=== PATIENT | male | born 1940 | race Caucasian/White ===

== ENCOUNTER 2022-11-24 08:32 | Outpatient (CLI) | payer MEDICARE, OTHER, SELFPAY ==
[2022-11-24] VITALS (7 sets, daily range): BP systolic 116–150; BP diastolic 58–70; PULSE 51–60; RESP 12–20; TEMP 36.3; O2SAT 98–100
--- NOTE | 2022-11-24 08:34 | DI.RAD.S_ITS ---
PROCEDURE: PAIN L INTERLAMINAR/CAUDAL INJ INDICATIONS: SPONDYLOSIS COMPARISON: [facility], CR, XR LUMBAR SPINE 2 OR 3 VIEWS, 06/19/2022, 16:36. [facility], MR, MR LUMBAR SPINE WITHOUT CONTRAST, 07/12/2022, 11:51. FINDINGS: Fluoroscopic spot filming was performed to verify placement of a spinal needle at the L4-L5 level, as labeled on the films. Appropriate location of the needle tip was confirmed by injection of iodinated contrast. Grade 1 L5-S1 anterolisthesis noted. IMPRESSION: Intraprocedural examination within normal limits. Dictated by: Juan F Mcclelland M.D. on 11/24/2022 at 10:55 Approved by: Juan F Mcclelland M.D. on 11/24/2022 at 10:56
[2022-11-24] MEDS: IOPAMIDOL 15 ML VIAL 3 ML INJ (10:06)
[2022-11-24] MEDS: BETAMETHASONE 30 MG/5 ML MDV 12 MG INJ (10:06)
[2022-11-24] MEDS: MIDAZOLAM 2 MG/2 ML VIAL 1 MG IV (10:06)
[2022-11-24] MEDS: DEXAMETHASONE 10 MG/ML VIAL 20 MG INJ (10:07)
[2022-11-24] MEDS: BUPIVACAINE 0.5% MDV 5 ML SUBCUT (10:08)
--- NOTE | 2022-11-24 10:18 | P.PCN_ITS ---
Date/Time/Diagnoses Date of procedure: 11/24/22 Time of procedure: 10:18 Pre-procedure diagnosis: 1. HNP WITH RADICULAR FEATURES, 2. MULTILEVEL CENTRAL STENOSIS, Post-procedure diagnosis: same Procedure Notes Procedure: 1. FLUOROSCOPICALLY GUIDED CONTRAST CONTROLLED INTERLAMINAR EPIDURAL STEROID INJECTION -L4/5 Indications: Brendan is referred by Dr. Slaughter for treatment of Bilateral Foraminal Stenosis R>L LE symptoms. Physician: Charles Bee Total Fluoroscopy time (seconds): 8 Total sedation minutes: 12 Complications: none Procedure in detail & Post-procedure care: FINDINGS Multilevel Central Spinal Stenosis with Nerve Root Compression DESCRIPTION OF PROCEDURE Fluoroscopically guided, contrast-controlled L4/5 translaminar epidural steroid injection. Following review of allergy and review of potential side effects and complications, including, but not necessarily limited to, infection, allergic reaction, local tissue breakdown, temporary as well as permanent nerve injury, paralysis, stroke and possible , the patient indicated that the patient understood and agreed to proceed. An informed consent document was signed by the patient, witnessed by a nurse, and placed in the patient's chart. Additionally, other treatment options including modalities, medications, and physical therapy were reviewed with the patient. After review of previous anaesthesic history and IV conscious sedation the patient was deemed safe to proceed with today?s procedure with IV conscious sedation as ASA class II designation. Safety time-out was performed to confirm patient ID, procedure to be performed and site of procedure. IV sedation was accomplished with a combination of 1mg of Versed was administered by the RN after DO order, titrated to patient comfort during the course of the procedure while the patient remained responsive to all verbal commands In the prone position, following sterile prep and drape of the lumbar region, the L4/5 translaminar space was identified fluoroscopically. The skin was anesthetized via a 25-gauge, 1.5inch needle with 1% lidocaine solution. At this point, a 22-gauge short bevel spinal needle was atraumatically introduced and advanced under fluoroscopic guidance into the region of the L4/5 translaminar space. Depth was confirmed on lateral view. Radiological data, including multiple fluoroscopic views of the lumbar spine, reveal a spinal needle at the L4/5 translaminar space. Lateral views then show placement of the needle in the epidural space. Subsequent views show contrast material flowing superiorly and inferiorly in the epidural space. No vascular or intrathecal uptake is observed. At this point, using loss of resistance technique with saline and air, the epidural space was entered. This was confirmed following negative aspiration with injection of approximately 1.5cc of Isovue 200, showing excellent epidural flow without vascular or intrathecal uptake. At this point, 1cc of 1% lidocaine solution combined with 3cc or 20mg of dexamethasone and 6mg betamethasone was injected without incident. The patient tolerated the procedure well without signs or symptoms of complications prior to transfer to the recovery area continued monitoring without incident. The patient was then transferred to the recovery area where they were observed for an appropriate period of time after the injection. The patient reported a VAS score of 6 prior to the procedure and a post- procedure VAS of 0. POST OP INSTRUCTIONS The patient was provided a Pain Log to continue to record their response to the target-specific procedure prior to follow-up visit with their referring physician. Additionally, specific post-injection care instructions and a contact number to our office were provided if concerns arise regarding possible complications associated with the procedure are suspected.
== END 2022-11-24 10:37 | disposition home or self-care (01) ==
PROVIDERS: PCP Student in an Organized Health Care Education/Training Program; Referring Provider Physical Medicine & Rehabilitation; Visit Provider Physical Medicine & Rehabilitation
DX: M51.16 Intervertebral disc disorders with radiculopathy, lumbar region (principal); M48.061 Spinal stenosis, lumbar region without neurogenic claudication
CPT/HCPCS: 62323; 99152; J0702; J1100; J2250

== ENCOUNTER → 2025-06-06 13:50 | Outpatient (CLI) | payer MEDICARE, OTHER, SELFPAY ==
--- NOTE | 2025-06-06 13:52 | DI.RAD.S_ITS ---
PROCEDURE: XR LUMBAR SPINE MIN 4V INDICATIONS: BACK PAIN TECHNIQUE: 5 views of the lumbar spine acquired, including flexion and extension views. COMPARISON: None. FINDINGS: Lumbar spine curvature and alignment: Grade 1 L5-S1 spondylolisthesis likely chronic bilateral spondylolysis appreciated. Mild leftward curve of the lumbar spine noted Bones: There are no other osseous abnormalities. Disc spaces: Moderate L2-3, mild L3-4 and moderate L5-S1 degenerative disc disease noted. Moderate L4-5 and severe L5-S1 degenerative facet disease Soft tissues: 5-6 calcifications in the left true pelvis ranging up to 8 mm are likely phleboliths IMPRESSION: Grade 1 L5-S1 spondylolisthesis. There are likely associated spondylitic defects which are merely poorly visualized. If this requires definitive diagnosis for surgical planning for instance , suggest either lumbar MRI or CT Degeneration Dictated by: Jair Kidd M.D. on 06/07/2025 at 11:13 Approved by: Jair Kidd M.D. on 06/07/2025 at 11:15
== END ==
PROVIDERS: PCP Student in an Organized Health Care Education/Training Program; Referring Provider Physical Medicine & Rehabilitation; Visit Provider Physical Medicine & Rehabilitation
DX: M43.17 Spondylolisthesis, lumbosacral region (principal); M51.26 Other intervertebral disc displacement, lumbar region; M53.3 Sacrococcygeal disorders, not elsewhere classified
CPT/HCPCS: 72110; 99214